=== PATIENT | female | born 1995 | race Caucasian/White ===

== ENCOUNTER 2016-10-07 22:11 | Emergency (ER) | payer OTHER ==
--- NOTE | 2016-10-07 23:45 | EDDOCDS ---
Nurse's Notes [facility] Name: Catina Bird Age: 21 yrs Sex: Female : 1995 Arrival Date: 10/07/2016 Time: 22:11 Bed Triage 3 Private MD: Carmela Steel DO Diagnosis: Chondrocostal junction syndrome [Tietze] Presentation: 10/07 22:18 Presenting complaint: Patient states: Chest tightness for few weeks. H/o of asthma. rs3 using rescue inhaler 2-3 times a day. reports of sharp pain intermittent on inspiration for 2 days. Aspirin was not taken prior to arrival. Adult Sepsis Screening: The patient does not have new or worsening altered mentation. Patient's respiratory rate is less than 22. Systolic blood pressure is greater than 100. Patient has a qSOFA score of 0- Negative Sepsis Screen. Suicide/Homicide risk assessment- the patient denies having any suicidal and/or homicidal ideations and does not present with any other emotional, behavioral or mental health complaints. 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 Transition of care: patient was not received from another setting of care. 22:18 Acuity: ADENIKE Level 4 rs3 22:18 Method Of Arrival: Walkin/Carried/Asstd rs3 Triage Assessment: 22:22 General: Appears in no apparent distress. Pain: Location: chest. Pt Declines HIV rs3 testing. Cardiovascular: Chest pain is described as Pain is 2 out of 10 on a pain scale. radiates Does not radiate. episodes are intermittent began 2 weeks. 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 albuterol sulfate 90 mcg/actuation inhalation HFAA 2 puffs every 4-6 hours - PMHx: Asthma; Depression; - PSHx: none; - Social history: Smoking status: Patient states was never smoker of tobacco. No barriers to communication noted, Speaks appropriately for age. - Family history: Not pertinent. - : The pt / caregiver states he / she is not on anticoagulants. Home medication list is obtained from the patient. - Exposure Risk Screening:: None identified. Screenin:42 Screening information is obtained from the patient. Fall risk: No risks identified. lf1 Assistance ADL's: requires no assistance with activities of daily living. Abuse/DV Screen: The patient / caregiver reports he/she is: not in a situation that causes fear, pain or injury. Nutritional screening: No deficits noted. Advance Directives: Currently, there is no health care proxy. home support is adequate. Assessment: 23:37 Adult Sepsis Screening: The patient does not have new or worsening altered mentation. lf1 Patient's respiratory rate is less than 22. Systolic blood pressure is greater than 100. Patient has a qSOFA score of 0- Negative Sepsis Screen. General: Appears in no apparent distress, comfortable, Behavior is cooperative. Pain: Location: chest Pain currently is 5 out of 10 on a pain scale. Aggravated by inspiration. Neurological: Level of Consciousness is awake, alert. EENT: Reports nasal congestion. Cardiovascular: No deficits noted. Respiratory: Respiratory effort is even, unlabored, Respiratory pattern is regular, Breath sounds are clear bilaterally. Denies shortness of breath. GI: Denies nausea, vomiting. Derm: Skin is normal. Vital Signs: 22:13 BP 145 / 88; Pulse 100; Resp 18 S; Temp 98.2(O); Pulse Ox 97% on R/A; Weight 81.65 kg gr2 (M); Height 5 ft. 2 in. (157.48 cm) (M); Pain 3/10; 23:42 BP 146 / 86; Pulse 88; Resp 18; Pulse Ox 96% on R/A; Pain 0/10; lf1 22:13 Body Mass Index 32.92 (81.65 kg, 157.48 cm) gr2 Vitals: 22:13 Log In Time: October 07, 2016 at 22:13. gr2 ED Course: 22:12 Patient visited by Leida Abrams. gr2 22:12 Patient moved to Waiting gr2 22:13 Carmela Steel is Private Physician. gr2 22:16 Patient visited by Leida Abrams. gr2 22:16 Patient moved to Pre RCE gr2 22:21 Triage Initiated rs3 23:16 Patient moved to Triage 3 cz 23:26 Festus Infante PA is PHCP. btw 23:26 Ector Ward DO is Attending Physician. btw 23:26 Patient visited by Festus Infante PA. btw 23:35 Carmela Steel is Referral Physician. btw 23:37 Patient visited by Marilyn Tirado,RN. lf1 23:42 The patient / caregiver is instructed regarding the plan of care and ED course. Cardiac lf1 monitoring not applicable on this patient. 23:42 No IV's were initiated during this patient's visit. No procedures done that require lf1 assistance. Order Results: There are currently no results for this order. Outcome: 23:36 Discharge ordered by Provider. btw 23:42 Discharge Assessment: Patient awake, alert and oriented x 3. No cognitive and/or lf1 functional deficits noted. Patient verbalized understanding of disposition instructions. Patient awake and alert. Oriented to person, place and time. Patient verbalized understanding of disposition instructions. patient administered narcotics - no. The following High Risk Discharge criteria are identified: None. Discharged to home ambulatory. Condition: unchanged. Discharge instructions given to patient, Instructed on discharge instructions, follow up and referral plans. medication usage, Demonstrated understanding of instructions, medications, Pt was receptive of discharge instructions/ teaching. Prescriptions given X 1. No special radiology studies were completed. Property :Personal belongings accompany Pt. 23:44 Patient left the ED. lf1 Signatures: Austin Arvizu, RN RN cz Marilyn Tirado,RN RN lf1 Chey ConwayRN RN rs3 Festus Infante PA PA btw Leida Abrams gr2 BERNABE
--- NOTE | 2016-10-07 23:45 | EDDOCDS ---
Physician Documentation [facility] Name: Catina Bird Age: 21 yrs Sex: Female : 1995 Arrival Date: 10/07/2016 Time: 22:11 Bed Triage 3 Private MD: Carmela Steel DO Disposition: 10/07/16 23:36 Discharged to Home/Self Care. Impression: Chondrocostal junction syndrome [Tietze]. - Condition is Stable. - Discharge Instructions: Costochondritis, [id number]. - Prescriptions for Medrol (Attila) 4 mg Oral Tablets, Dose Pack - take 1 Pack by ORAL route as directed - follow package instructions; 1 packet. - Medication Reconciliation, Local Pharmacy Hours form. - Follow up: Carmela Steel; When: Call to arrange an appointment; Reason: Further diagnostic work-up, Recheck today's complaints, Continuance of care. - Problem is an ongoing problem. - Symptoms are unchanged. Historical: - Allergies: no known allergies; - Home Meds: 1. albuterol sulfate 90 mcg/actuation inhalation HFAA 2 puffs every 4-6 hours - PMHx: Asthma; Depression; - PSHx: none; - Social history: Smoking status: Patient states was never smoker of tobacco. No barriers to communication noted, Speaks appropriately for age. - Family history: Not pertinent. - : The pt / caregiver states he / she is not on anticoagulants. Home medication list is obtained from the patient. - Exposure Risk Screening:: None identified. 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 2 in. (157.48 cm) (M); Pain 3/10; 23:42 BP 146 / 86; Pulse 88; Resp 18; Pulse Ox 96% on R/A; Pain 0/10; lf1 22:13 Body Mass Index 32.92 (81.65 kg, 157.48 cm) gr2 MDM: 23:43 Financial registration complete. pm4 Signatures: Marilyn Tiraod RN RN lf1 Chey Conway RN RN rs3 Festus Infante PA PA btw Roly Sosa, Reg Reg pm4 MTDD
--- NOTE | 2016-10-10 00:45 | EDDOCDS ---
Physician Documentation [facility] Name: Catina Bird Age: 21 yrs Sex: Female : 1995 Arrival Date: 10/07/2016 Time: 22:11 Bed Triage 3 Private MD: Carmela Steel DO Disposition: 10/07/16 23:36 Discharged to Home/Self Care. Impression: Chondrocostal junction syndrome [Tietze]. - Condition is Stable. - Discharge Instructions: Costochondritis, [id number]. - Prescriptions for Medrol (Attila) 4 mg Oral Tablets, Dose Pack - take 1 Pack by ORAL route as directed - follow package instructions; 1 packet. - Medication Reconciliation, Local Pharmacy Hours form. - Follow up: Carmela Steel; When: Call to arrange an appointment; Reason: Further diagnostic work-up, Recheck today's complaints, Continuance of care. - Problem is an ongoing problem. - Symptoms are unchanged. Historical: - Allergies: no known allergies; - Home Meds: 1. albuterol sulfate 90 mcg/actuation inhalation HFAA 2 puffs every 4-6 hours - PMHx: Asthma; Depression; - PSHx: none; - Social history: Smoking status: Patient states was never smoker of tobacco. No barriers to communication noted, Speaks appropriately for age. - Family history: Not pertinent. - : The pt / caregiver states he / she is not on anticoagulants. Home medication list is obtained from the patient. - Exposure Risk Screening:: None identified. 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 2 in. (157.48 cm) (M); Pain 3/10; 23:42 BP 146 / 86; Pulse 88; Resp 18; Pulse Ox 96% on R/A; Pain 0/10; lf1 22:13 Body Mass Index 32.92 (81.65 kg, 157.48 cm) gr2 MDM: 23:43 Financial registration complete. pm4 10/08 00:21 [facility] Payment Agreement was scanned into [employer] and attached to record. pm4 12:13 T-Sheet-- Draft Copy was scanned into MEDHOST and attached to record. gb Signatures: Cony Pacheco, Reg Reg gb Marilyn TiradoRN RN lf1 Chey ConwayRN RN rs3 Festus Infante PA PA btw Roly Sosa, Reg Reg pm4 The chart was reviewed and I authenticate all verbal orders and agree with the evaluation and treatment provided.Attachments: 00:21 [facility] Payment Agreement pm4 12:13 T-Sheet-- Draft Copy gb Chart Complete MTDD
--- NOTE | 2016-10-10 00:45 | EDDOCDS ---
Nurse's Notes [facility] Name: Catina Bird Age: 21 yrs Sex: Female : 1995 Arrival Date: 10/07/2016 Time: 22:11 Bed Triage 3 Private MD: Carmela Steel DO Diagnosis: Chondrocostal junction syndrome [Tietze] Presentation: 10/07 22:18 Presenting complaint: Patient states: Chest tightness for few weeks. H/o of asthma. rs3 using rescue inhaler 2-3 times a day. reports of sharp pain intermittent on inspiration for 2 days. Aspirin was not taken prior to arrival. Adult Sepsis Screening: The patient does not have new or worsening altered mentation. Patient's respiratory rate is less than 22. Systolic blood pressure is greater than 100. Patient has a qSOFA score of 0- Negative Sepsis Screen. Suicide/Homicide risk assessment- the patient denies having any suicidal and/or homicidal ideations and does not present with any other emotional, behavioral or mental health complaints. 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 Transition of care: patient was not received from another setting of care. 22:18 Acuity: ADENIKE Level 4 rs3 22:18 Method Of Arrival: Walkin/Carried/Asstd rs3 Triage Assessment: 22:22 General: Appears in no apparent distress. Pain: Location: chest. Pt Declines HIV rs3 testing. Cardiovascular: Chest pain is described as Pain is 2 out of 10 on a pain scale. radiates Does not radiate. episodes are intermittent began 2 weeks. 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 albuterol sulfate 90 mcg/actuation inhalation HFAA 2 puffs every 4-6 hours - PMHx: Asthma; Depression; - PSHx: none; - Social history: Smoking status: Patient states was never smoker of tobacco. No barriers to communication noted, Speaks appropriately for age. - Family history: Not pertinent. - : The pt / caregiver states he / she is not on anticoagulants. Home medication list is obtained from the patient. - Exposure Risk Screening:: None identified. Screenin:42 Screening information is obtained from the patient. Fall risk: No risks identified. lf1 Assistance ADL's: requires no assistance with activities of daily living. Abuse/DV Screen: The patient / caregiver reports he/she is: not in a situation that causes fear, pain or injury. Nutritional screening: No deficits noted. Advance Directives: Currently, there is no health care proxy. home support is adequate. Assessment: 23:37 Adult Sepsis Screening: The patient does not have new or worsening altered mentation. lf1 Patient's respiratory rate is less than 22. Systolic blood pressure is greater than 100. Patient has a qSOFA score of 0- Negative Sepsis Screen. General: Appears in no apparent distress, comfortable, Behavior is cooperative. Pain: Location: chest Pain currently is 5 out of 10 on a pain scale. Aggravated by inspiration. Neurological: Level of Consciousness is awake, alert. EENT: Reports nasal congestion. Cardiovascular: No deficits noted. Respiratory: Respiratory effort is even, unlabored, Respiratory pattern is regular, Breath sounds are clear bilaterally. Denies shortness of breath. GI: Denies nausea, vomiting. Derm: Skin is normal. Vital Signs: 22:13 BP 145 / 88; Pulse 100; Resp 18 S; Temp 98.2(O); Pulse Ox 97% on R/A; Weight 81.65 kg gr2 (M); Height 5 ft. 2 in. (157.48 cm) (M); Pain 3/10; 23:42 BP 146 / 86; Pulse 88; Resp 18; Pulse Ox 96% on R/A; Pain 0/10; lf1 22:13 Body Mass Index 32.92 (81.65 kg, 157.48 cm) gr2 Vitals: 22:13 Log In Time: October 07, 2016 at 22:13. gr2 ED Course: 22:12 Patient visited by Leida Abrams. gr2 22:12 Patient moved to Waiting gr2 22:13 Carmela Steel is Private Physician. gr2 22:16 Patient visited by Leida Abrams. gr2 22:16 Patient moved to Pre RCE gr2 22:21 Triage Initiated rs3 23:16 Patient moved to Triage 3 cz 23:26 Festus Infante PA is PHCP. btw 23:26 Ector Ward DO is Attending Physician. btw 23:26 Patient visited by Festus Infante PA. btw 23:35 Carmela Steel is Referral Physician. btw 23:37 Patient visited by Marilyn Tirado,JW. lf1 23:42 The patient / caregiver is instructed regarding the plan of care and ED course. Cardiac lf1 monitoring not applicable on this patient. 23:42 No IV's were initiated during this patient's visit. No procedures done that require lf1 assistance. 10/08 00:21 [facility] Payment Agreement was scanned into [employer] and attached to record. pm4 12:13 T-Sheet-- Draft Copy was scanned into bookjam and attached to record. gb Order Results: There are currently no results for this order. Outcome: 10/07 23:36 Discharge ordered by Provider. btw 23:42 Discharge Assessment: Patient awake, alert and oriented x 3. No cognitive and/or lf1 functional deficits noted. Patient verbalized understanding of disposition instructions. Patient awake and alert. Oriented to person, place and time. Patient verbalized understanding of disposition instructions. patient administered narcotics - no. The following High Risk Discharge criteria are identified: None. Discharged to home ambulatory. Condition: unchanged. Discharge instructions given to patient, Instructed on discharge instructions, follow up and referral plans. medication usage, Demonstrated understanding of instructions, medications, Pt was receptive of discharge instructions/ teaching. Prescriptions given X 1. No special radiology studies were completed. Property :Personal belongings accompany Pt. 23:44 Patient left the ED. lf1 Signatures: Austin Arvizu, RN RN cz Cony Pacheco, Reg Reg gb Marilyn TiradoRN RN lf1 Chey Conway RN RN rs3 Festus Infante PA PA btw Leida Abrams gr2 Roly Sosa, Reg Reg pm4 Chart Complete MTDD
--- NOTE | 2016-10-10 00:45 | EDDOCDS ---
Physician Documentation [facility] Name: Catina Bird Age: 21 yrs Sex: Female : 1995 Arrival Date: 10/07/2016 Time: 22:11 Bed Triage 3 Private MD: Carmela Steel DO Disposition: 10/07/16 23:36 Discharged to Home/Self Care. Impression: Chondrocostal junction syndrome [Tietze]. - Condition is Stable. - Discharge Instructions: Costochondritis, [id number]. - Prescriptions for Medrol (Attila) 4 mg Oral Tablets, Dose Pack - take 1 Pack by ORAL route as directed - follow package instructions; 1 packet. - Medication Reconciliation, Local Pharmacy Hours form. - Follow up: Carmela Steel; When: Call to arrange an appointment; Reason: Further diagnostic work-up, Recheck today's complaints, Continuance of care. - Problem is an ongoing problem. - Symptoms are unchanged. Historical: - Allergies: no known allergies; - Home Meds: 1. albuterol sulfate 90 mcg/actuation inhalation HFAA 2 puffs every 4-6 hours - PMHx: Asthma; Depression; - PSHx: none; - Social history: Smoking status: Patient states was never smoker of tobacco. No barriers to communication noted, Speaks appropriately for age. - Family history: Not pertinent. - : The pt / caregiver states he / she is not on anticoagulants. Home medication list is obtained from the patient. - Exposure Risk Screening:: None identified. 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 2 in. (157.48 cm) (M); Pain 3/10; 23:42 BP 146 / 86; Pulse 88; Resp 18; Pulse Ox 96% on R/A; Pain 0/10; lf1 22:13 Body Mass Index 32.92 (81.65 kg, 157.48 cm) gr2 MDM: 23:43 Financial registration complete. pm4 10/08 00:21 [facility] [place] Payment Agreement was scanned into [employer] and attached to record. pm4 12:13 T-Sheet-- Draft Copy was scanned into MED[employer] and attached to record. gb Signatures: Cony Pacheco, Reg Reg gb Marilyn TiradoRN RN lf1 Chey ConwayRN RN rs3 Festus Infante PA PA btw Roly Sosa, Reg Reg pm4 The chart was reviewed and I authenticate all verbal orders and agree with the evaluation and treatment provided.Attachments: 00:21 [facility] [place] Payment Agreement pm4 12:13 T-Sheet-- Draft Copy gb Chart Complete MTDD
== END 2016-10-07 23:44 | disposition home or self-care (01) ==
LOC: M ED 22:11
DX: M94.0 Chondrocostal junction syndrome [Tietze] (principal); J45.909 Unspecified asthma, uncomplicated; F32.9 Major depressive disorder, single episode, unspecified